=== PATIENT | female | born 1995 | race African-American/Black ===

== ENCOUNTER 2016-10-13 16:07 | Emergency (ER) | payer SELFPAY ==
[~2016-10-13] VITALS: Ht 152.4 cm; Wt 73.5 kg
--- NOTE | ~2016-10-13 | EKG ---
PATIENT: HENRIETTA ROSALES UNIT #: [id number] Ventricular Rate: 72 BPM Atrial Rate: 72 BPM P-R Interval: 164 ms QRS Duration: 96 ms Q-T Interval: 394 ms QTC Calculation(Bezet): 431 ms P Crockett: 59 degrees Calculated R Crockett: 25 degrees Calculated T Crockett: 67 degrees Diagnosis Line: Normal sinus rhythm with sinus arrhythmia Diagnosis Line: Normal ECG Diagnosis Line: No previous ECGs available Diagnosis Line: Confirmed by KANIKA STARR MD ([id number]) on 10/13/2016 Diagnosis Line: 5:05:16 PM INTERPRETING MD: RO COLES
--- NOTE | ~2016-10-13 | CR72 ---
[facility] A Service of [facility] RADIOLOGY TEXT RESULTS PATIENT: HENRIETTA ROSALES LOCATION: [facility] : [birth year] UNIT #: [id number] AGE: [address]: Nakul Stephenson MD SEX: F ORDER DR: [id number] [facility] [address] [place], [place] [address] [id number] E MR#: [id number] #: [id number] NAME: HENRIETTA ROSALES : 1995 SEX: F STUDY DATE/TIME: 10/13/2016 16:45 UNIT: [facility] ROOM: STUDY DESCRIPTION: CR Chest Single View Portable Attending Physician: Nakul Stephenson M.D. Ordering Physician: Nakul Stephenson M.D. Primary Care Physician: No Primary Care Physician MEDICAL IMAGING REPORT This report is preliminary unless electronic signature is present EXAM Chest x-ray, portable, single view. HISTORY Short of air. Chest tightness and dizziness. Symptoms began today. COMMENT Single frontal portable view of the chest timed 1645 on 10/13/2016 reviewed. No comparison. There is normal heart size. No acute-appearing parenchyma infiltrate or acute congestive failure. No pleural effusion or pneumothorax. IMPRESSION No active disease. Dictated by... Sheila Mooney M.D. THIS IS AN ELECTRONICALLY VERIFIED REPORT Sheila Mooney M.D. at 10/16/2016 1:56 PM VÍCTOR/richelle TD: 10/14/2016 07:21 JOB #: [id number] MEDICAL IMAGING REPORT Page 1 of 1 COPY
[2016-10-13 16:51] LABS: BASOPHIL# 0.1 X10e3 (0-0.3); BASOPHIL% 0.8 % (0-2.5); EOSINOPHIL# 0.3 X10e3 (0-0.7); EOSINOPHIL% 2.5 % (0.0-7.0); HEMATOCRIT 38.2 % (35.0-45.0); LYMPHOCYTE# 2.6 X10e3 (1.0-3.5); LYMPHOCYTE% 22.4 % (17.0-45.0); MEAN CELL VOLUME 83.3 FL (83-96); MEAN CORPUSCULAR HEMOGLOBIN 28.3 PG (28-34); MEAN PLATELET VOLUME 8.2 FL (6.5-11.5); MONOCYTE% 8.4 % (3.0-12.0); NEUTROPHIL# 7.8 X10e3 (1.5-7.1); NEUTROPHIL% 65.9 % (40-75); PLATELET COUNT 398 X10e3 (140-420); RED BLOOD COUNT 4.58 X10e (3.90-5.30); RED CELL DISTRIBUTION WIDTH 13.6 % (11.0-15.5); WHITE BLOOD COUNT 11.8 X10e3 (4.0-10.5)
[2016-10-13 16:55] LABS: DIFF IND NO
[2016-10-13 17:10] LABS: ALBUMIN SERUM 4.1 g/dL (3.5-5.0); ALKALINE PHOSPHATASE 62 U/L (32-92); ALT (SGPT) 14 U/L (10-40); AST (SGOT) 18 U/L (10-42); BILIRUBIN,TOTAL 0.4 mg/dL (0.2-2.0); BLOOD UREA NITROGEN 19 mg/dL (9-23); CALCIUM SERUM 9.5 mg/dL (8.4-10.2); CARBON DIOXIDE 19 mmol/L (22-31); CHLORIDE 108 mmol/L (100-111); GLOM FILT RATE Estimated 81.1 mL/min (>60); GLUCOSE FASTING 89 mg/dL (70-110); POTASSIUM 3.4 mmol/L (3.5-5.1); PROTEIN TOTAL SERUM 7.7 g/dL (6.0-8.3); SODIUM 139 mmol/L (135-145)
[2016-10-13 17:10] LABS: POC - CKMB <1.0 ng/mL (0.0-7.9); POC - TROPONIN <0.05 ng/mL (<=0.05)
[2016-10-13 17:14] LABS: BILIRUBIN, DIRECT <0.1 mg/dL (0.0-0.2); BILIRUBIN,INDIRECT 0.3 mg/dL (0.0-0.9)
[2016-10-13 17:57] LABS: AMPHETAMINE NEG (NEG); BARBITURATES NEG (NEG); BENZODIAZEPINES NEG (NEG); COCAINE NEG (NEG); MARIJUANA NEG (NEG); OPIATES NEG (NEG); TRICYCLIC ANTIDEPRESSANTS NEG (NEG); U METHADONE NEG (NEG)
== END 2016-10-13 18:32 | disposition home or self-care (01) ==
LOC: CED 16:07
PROVIDERS: Emergency Medicine
DX: F41.0 Panic disorder [episodic paroxysmal anxiety] (principal)
CPT/HCPCS: 36415; 71010; 80048; 80076; 80307; 82553; 83880; 84484; 84703; 85025; 93005; 99285